=== PATIENT | female | born 1990 | race Caucasian/White ===

== ENCOUNTER 2021-09-14 14:28 | Emergency (ER) | payer SELFPAY ==
--- NOTE | 2021-09-14 14:35 | NUR ---
CALLED TO TRIAGE,NO ANSWER
--- NOTE | 2021-09-14 14:53 | NUR ---
left without being triage
== END 2021-09-14 14:53 | disposition left against medical advice (07) ==
LOC: ER 14:31
DX: Z53.21 Procedure and treatment not carried out due to patient leaving prior to being seen by health care provider (principal)
CPT/HCPCS: A6403